=== PATIENT | female | born 1960 | race African-American/Black ===

== ENCOUNTER → 2022-03-24 | Outpatient (CLI) | payer OTHER ==
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
== END | disposition home or self-care (01) ==
LOC: RADCTMAIN 12:19
PROVIDERS: ATTEND Emergency Medicine
DX: M50.31 Other cervical disc degeneration, high cervical region (principal); M40.202 Unspecified kyphosis, cervical region; M17.12 Unilateral primary osteoarthritis, left knee; S00.83XA Contusion of other part of head, initial encounter; S13.4XXA Sprain of ligaments of cervical spine, initial encounter; S40.012A Contusion of left shoulder, initial encounter
CPT/HCPCS: 70450; 72125

== ENCOUNTER 2022-03-27 12:04 | Emergency (ER) | payer OTHER ==
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
[2022-03-27 12:30] VITALS: TEMP 96.8
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
[2022-03-27 14:24] VITALS: BP 182/106; PULSE 66; RESP 18
== END 2022-03-27 14:24 | disposition home or self-care (01) ==
LOC: EC 12:04
DX: S09.90XA Unspecified injury of head, initial encounter (principal); I10 Essential (primary) hypertension; Z88.8 Allergy status to other drugs, medicaments and biological substances; Y04.0XXA Assault by unarmed brawl or fight, initial encounter
CPT/HCPCS: 70450; 99283